=== PATIENT | female | born 1950 | race Caucasian/White ===

== ENCOUNTER 2024-02-22 09:13 | Outpatient (RCR) | payer OTHER, SELFPAY | END 2024-02-22 23:59 | disposition home or self-care (01) | LOC: RPT 09:13 | PROVIDERS: ATTENDING PHYSICIAN Orthopaedic Surgery; FAMILY PHYSICIAN General Practice | DX: S93.491D Sprain of other ligament of right ankle, subsequent encounter (principal); M25.571 Pain in right ankle and joints of right foot; M76.821 Posterior tibial tendinitis, right leg; Z73.6 Limitation of activities due to disability | CPT/HCPCS: 97010; 97110; 97112; 97161; 97530 ==

== ENCOUNTER 2024-03-03 08:51 | Outpatient (RCR) | payer OTHER, SELFPAY | END 2024-03-03 10:12 | disposition home or self-care (01) | LOC: RPT 08:51 | PROVIDERS: ATTENDING PHYSICIAN Orthopaedic Surgery; FAMILY PHYSICIAN General Practice | DX: S93.491D Sprain of other ligament of right ankle, subsequent encounter (principal); X58.XXXD Exposure to other specified factors, subsequent encounter; M25.571 Pain in right ankle and joints of right foot; M76.821 Posterior tibial tendinitis, right leg; Z73.6 Limitation of activities due to disability | CPT/HCPCS: 97010; 97110; 97112; 97140 ==

== ENCOUNTER 2025-04-23 14:10 | Outpatient (RCR) | payer OTHER, SELFPAY | END 2025-04-23 23:59 | disposition home or self-care (01) | LOC: RPT 14:10 | PROVIDERS: ATTENDING PHYSICIAN Family Medicine | DX: M54.51 Vertebrogenic low back pain (principal); M43.17 Spondylolisthesis, lumbosacral region; Z73.6 Limitation of activities due to disability; M62.81 Muscle weakness (generalized) | CPT/HCPCS: 97010; 97110; 97112; 97162 ==

== ENCOUNTER 2025-05-25 08:36 | Outpatient (RCR) | payer OTHER, SELFPAY | END 2025-05-25 23:59 | disposition home or self-care (01) | LOC: RPT 08:36 | PROVIDERS: ATTENDING PHYSICIAN Family Medicine | DX: M54.51 Vertebrogenic low back pain (principal); M43.17 Spondylolisthesis, lumbosacral region; Z73.6 Limitation of activities due to disability; M62.81 Muscle weakness (generalized) | CPT/HCPCS: 97010; 97110; 97112 ==

== ENCOUNTER 2025-06-20 06:24 | Outpatient (RCR) | payer OTHER, SELFPAY | END 2025-06-20 23:59 | disposition home or self-care (01) | LOC: RPT 06:24 | PROVIDERS: ATTENDING PHYSICIAN Family Medicine | DX: M54.51 Vertebrogenic low back pain (principal); M43.17 Spondylolisthesis, lumbosacral region; Z73.6 Limitation of activities due to disability; M62.81 Muscle weakness (generalized) | CPT/HCPCS: 97010; 97110; 97112 ==

== ENCOUNTER 2025-07-12 09:25 | Outpatient (RCR) | payer OTHER, SELFPAY | END 2025-07-23 23:59 | disposition home or self-care (01) | LOC: RPT 09:25 | PROVIDERS: ATTENDING PHYSICIAN Family Medicine | DX: M54.51 Vertebrogenic low back pain (principal); M43.17 Spondylolisthesis, lumbosacral region; Z73.6 Limitation of activities due to disability; M62.81 Muscle weakness (generalized) | CPT/HCPCS: 97110; 97112; 97530 ==